=== PATIENT | female | born 1970 | race Caucasian/White ===

== ENCOUNTER → 2016-12-01 | Outpatient (CLI) | payer OTHER ==
--- NOTE | 2016-12-10 15:24 | REPMRS ---
Patient History The patient states she has not had a clinical breast exam in over a year. Family history of endometrial cancer in mother at age 60. Digital Mammo Screening Bilat: December 01, 2016 - Exam #: [id number] Bilateral CC and MLO view(s) were taken. Technologist: Renata Guerrero, Technologist FINDINGS: There are scattered fibroglandular densities. There has been no change in the appearance of the mammogram from the prior studies. There is a mild amount of residual fibroglandular tissue which is fairly symmetric. There is no interval development of dominant mass, architectural distortion, or clustered microcalcification suggestive of malignancy. ASSESSMENT: BI-RADS/ACR category 1 mammogram. Negative. Recommendation Routine screening mammogram in 1 year (for women over age 40). This mammogram was interpreted with the aid of an FDA-approved computer-aided dectection system. Electronically Signed By: Charles Cordoba MD 12/10/16 [id number]
== END ==
LOC: M RAD 15:14
PROVIDERS: ATTEND Internal Medicine
DX: Z12.31 Encounter for screening mammogram for malignant neoplasm of breast (principal)

== ENCOUNTER 2018-08-10 10:08 | Day surgery (SDC) | payer OTHER ==
[~2018-08-10] VITALS: Ht 152.4 cm; Wt 79.3 kg
[~2018-08-10 10:08] MED LIST: BUPR15TA PO; LEXA1TAB PO; LIDOCAINE 1% MDV 20ML VIAL SQ PRN; LR 1,000 ML IV ONE
[2018-08-10] MEDS ORDERED: OMEP10CASR PO (10:47)
[2018-08-10] MEDS ORDERED: LIDOCAINE 2% INJ 100 MG/5 ML SDV (FOR ANES.) As Ordered ONE (11:02)
[2018-08-10] MEDS ORDERED: PROPOFOL 200 MG/20 ML VIAL As Ordered ONE (11:02)
[2018-08-10] MEDS ORDERED: fentaNYL 100 MCG/2 ML INJECTION (J3010) As Ordered ONE (11:02)
[2018-08-10] MEDS ORDERED: MIDAZOLAM INJ 2 MG/2 ML VIAL (J2250) As Ordered ONE (11:02)
[2018-08-10 11:37] LABS: HEMOGLOBIN 11.8 g/dl (12.0-15.5); MEAN CORPUSCULAR HEMOGLOBIN 27.4 pg (27.0-33.0); MEAN CORPUSCULAR HGB CONC 32.8 g/dl (32.0-36.5); MEAN CORPUSCULAR VOLUME 83.5 fl (80.0-96.0); PLATELET COUNT, AUTOMATED 406 10^3/uL (150-450); RED BLOOD COUNT 4.31 10^6/uL (4.00-5.40); WHITE BLOOD COUNT 8.6 10^3/uL (4.0-10.0)
[2018-08-10 12:18] LABS: HCG, SERUM QUALITATIVE NEGATIVE (NEGATIVE)
[2018-08-10] MEDS ORDERED: dexameTHASONE 4 MG/ML 1ML VIAL (J1100) As Ordered ONE (12:44)
[2018-08-10] MEDS ORDERED: KETOROLAC 60 MG/2 ML VIAL (J1885) As Ordered ONE (12:44)
[2018-08-10] MEDS ORDERED: ONDANSETRON 4MG/2ML VIAL (J2405) As Ordered ONE (12:45)
[2018-08-10] MEDS ORDERED: PERCOCET 5MG/325MG TAB PO PRN (14:00)
[2018-08-10] MEDS ORDERED: fentaNYL 100 MCG/2 ML INJECTION (J3010) IV PRN (14:00)
[2018-08-10] MEDS ORDERED: NORCO, ANEXSIA 5/325MG TABLET (HYDROcodone/ACETAMINOPHEN) PO PRN (14:00)
[2018-08-10] MEDS ORDERED: ONDANSETRON 4MG/2ML VIAL (J2405) IV PRN (14:00)
[2018-08-10] MEDS ORDERED: LR 1,000 ML IV SCH (14:00)
[2018-08-10 14:24] VITALS: BP 137/68
--- NOTE | 2018-08-10 14:36 | RO ---
DATE OF PROCEDURE: 08/10/2018 PREOPERATIVE DIAGNOSIS: Abnormal uterine bleeding. POSTOPERATIVE DIAGNOSES: Abnormal uterine bleeding. Severe uterine anteversion. PROCEDURE: Hysteroscopy. Dilatation and curettage. SURGEON: Dr. Hallman HOME SALES SERVICE PROFESSIONAL: None. ANESTHESIA: Laryngeal mask airway (LMA). FLUIDS: 900 mL Lactated Ringer's. URINE OUTPUT: 50 mL via straight cath. ANTIBIOTICS: None indicated ESTIMATED BLOOD LOSS: 2 mL. COMPLICATIONS: None. OPERATIVE FINDINGS: Severely anteverted uterus sounded to 7.5 cm. Hysteroscopy impossible secondary to severe anteversion of the uterus and rigid hysteroscope. DETAILED PROCEDURE DESCRIPTION: The risks, benefits, indications and alternatives to the procedure were reviewed with the patient and informed consent was obtained. The patient was taken to the operating room where LMA anesthesia was obtained without difficulty. The patient was then placed in lithotomy position using Ciro stirrups. An exam under anesthesia was then performed and was significant for a midline severely anteverted uterus with minimal mobility. The patient was then prepped and draped in the usual sterile fashion and the bladder was drained using in and out catheter. A surgical time out was then performed and the planned procedure and the patient's identity were verified with the operative team. A sterile speculum was placed in the patient's vagina and the cervix was visualized. The uterus was extremely anteverted and the cervix was very difficult to visualize as well as access. A single toothed tenaculum was then used to grasp the anterior lip of the cervix. A uterine sound was gently placed into the uterus and sound to 7.5 cm in length. The cervix was then gently serially dilated to a size 12 [place] with a Sabas dilator. The hysteroscope was first primed. The hysteroscope was then advanced through the endocervical canal under direct visualization. Due to the rigid hysteroscope and orientation of the uterus and cervix, it was impossible to distend the uterine cavity completely. Thus examination of the uterine cavity could not be performed directly with the hysteroscope. The hysteroscope was then removed from the uterus. The cervix was then gently further dilated and a sharp curettage was then performed until a gritty texture was felt in all tissue planes. The tissue obtained was sent to pathology for review. The single tooth tenaculum was then removed from the anterior lip of the cervix and the tenaculum site was noted to be hemostatic. All instruments were then removed from the patient's vagina. Hysteroscopic fluid deficit was 50 mL of normal saline. The patient tolerated the procedure well. A vaginal sweep at the conclusion of the case revealed no retained foreign objects in the vagina. At the completion of the case, the sponge, instrument and needle counts were correct times two. The patient was taken to the postanesthesia care unit (PACU) in stable condition. [facility]IL[facility]
== END 2018-08-10 15:15 | disposition home or self-care (01) ==
LOC: M SDC 10:08
PROVIDERS: ATTEND Obstetrics & Gynecology
DX: N92.6 Irregular menstruation, unspecified (principal); N85.4 Malposition of uterus; K21.9 Gastro-esophageal reflux disease without esophagitis; F41.9 Anxiety disorder, unspecified; F32.9 Major depressive disorder, single episode, unspecified; Z79.899 Other long term (current) drug therapy; Z88.0 Allergy status to penicillin
CPT/HCPCS: 36415; 58558; 84703; 85027; 86850; 86900; 86901; 88305; J1100; J1885; J2250; J2405; J3010

== ENCOUNTER 2018-10-05 10:23 | Day surgery (SDC) | payer OTHER ==
[~2018-10-05] VITALS: Ht 152.4 cm; Wt 78.5 kg
[~2018-10-05 10:23] MED LIST changes: -LIDOCAINE 1% MDV 20ML VIAL SQ PRN; +OMEP10CASR PO
[2018-10-05] MEDS ORDERED: ZANT150T40 PO (10:57)
[2018-10-05 11:12] LABS: HEMATOCRIT 38.7 % (36.0-47.0); HEMOGLOBIN 12.3 g/dl (12.0-15.5); MEAN CORPUSCULAR HEMOGLOBIN 26.9 pg (27.0-33.0); MEAN CORPUSCULAR HGB CONC 31.8 g/dl (32.0-36.5); MEAN CORPUSCULAR VOLUME 84.7 fl (80.0-96.0); PLATELET COUNT, AUTOMATED 407 10^3/uL (150-450); RED BLOOD COUNT 4.57 10^6/uL (4.00-5.40); WHITE BLOOD COUNT 8.4 10^3/uL (4.0-10.0)
[2018-10-05 11:35] LABS: HCG, SERUM QUALITATIVE NEGATIVE (NEGATIVE)
[2018-10-05] MEDS ORDERED: SUCCINYLCHOLINE 100 MG/5 ML SYRINGE (J0330) As Ordered ONE (14:07)
[2018-10-05] MEDS ORDERED: fentaNYL 250 MCG/5 ML INJECTION (J3010) As Ordered ONE (14:07)
[2018-10-05] MEDS ORDERED: MIDAZOLAM INJ 2 MG/2 ML VIAL (J2250) As Ordered ONE (14:07)
[2018-10-05] MEDS ORDERED: dexameTHASONE 4 MG/ML 1ML VIAL (J1100) As Ordered ONE (14:07)
[2018-10-05] MEDS ORDERED: LIDOCAINE 2% INJ 100 MG/5 ML SDV (FOR ANES.) As Ordered ONE (14:07)
[2018-10-05] MEDS ORDERED: KETOROLAC 60 MG/2 ML VIAL (J1885) As Ordered ONE (14:07)
[2018-10-05] MEDS ORDERED: PROPOFOL 200 MG/20 ML VIAL As Ordered ONE (14:07)
[2018-10-05] MEDS ORDERED: ONDANSETRON 4MG/2ML VIAL (J2405) As Ordered ONE (14:07)
[2018-10-05] MEDS ORDERED: ONDANSETRON 4MG/2ML VIAL (J2405) IV PRN (15:00)
[2018-10-05] MEDS ORDERED: LR 1,000 ML IV SCH (15:00)
[2018-10-05] MEDS ORDERED: KETOROLAC 30 MG/ML VIAL (J1885) IV ONE (15:00)
[2018-10-05] MEDS ORDERED: fentaNYL 100 MCG/2 ML INJECTION (J3010) IV PRN (15:00)
[2018-10-05] MEDS ORDERED: PERCOCET 5MG/325MG TAB PO PRN ×2 (15:00)
[2018-10-05] MEDS ORDERED: METOCLOPRAMIDE INJ 10MG/2ML VIAL (J2765) IV PRN (15:00)
[2018-10-05 16:20] VITALS: BP 159/79
--- NOTE | 2018-10-07 08:31 | RO ---
DATE OF PROCEDURE: 10/05/2018 PREOPERATIVE DIAGNOSIS: Abnormal uterine bleeding. POSTOPERATIVE DIAGNOSIS: Abnormal uterine bleeding. PROCEDURE: OR assisted endometrial biopsy. SURGEON: Dr. Judd Hallman SPRINKLER FITTER APPRENTICE: None. ANESTHESIA: General. FLUIDS: 1200 mL. URINE OUTPUT: 30 mL. ESTIMATED BLOOD LOSS: 5 mL. COMPLICATIONS: None. ANTIBIOTICS: None indicated. DETAILED PROCEDURE DESCRIPTION: The risks, benefits, indications and alternatives of the procedure were reviewed with the patient and informed consent was obtained. The patient was taken to the operating room where general anesthesia was obtained without difficulty. The patient was then placed in lithotomy position using Ciro stirrups. Exam under anesthesia was then performed and was significant for a severely anteverted uterus approximately 12 weeks in size. The patient was then prepped and draped in the usual sterile fashion. The bladder was drained using an in and out catheter. A sterile speculum was placed into the patient's vagina and the cervix was visualized. The cervix and uterus were extremely anteverted, making access to the cervix very difficult. The cervix was ultimately grasped with a single tooth tenaculum on the anterior lip. Sounding of the uterus was not done with a rigid instrument due to the extreme anteversion of the uterus. The cervix was gently dilated to a size 10 Iranian with a Sabas dilator. Due to the inability to place rigid instruments because of the severe anteversion of the uterus, an endometrial Pipelle was obtained and opened on the field. The endometrial Pipelle, with some difficulty, was inserted through the cervix and advanced to the uterine fundus. The endometrial Pipelle was advanced into the uterus to 12 cm. Tissue sampling was obtained in all planes and an adequate tissue amount was obtained and sent to pathology for review. Multiple passes were performed to ensure good tissue sampling. The single tooth tenaculum was then removed from the anterior lip of the cervix and the cervix was noted to be hemostatic. All instruments were then removed from the patient's vagina. The patient tolerated the procedure well. At the completion of the case, the sponge, instrument and needle counts were correct times two. The patient was taken to the postanesthesia care unit (PACU) in stable condition. [facility]ITALMabel
== END 2018-10-05 16:25 | disposition home or self-care (01) ==
LOC: M SDC 10:23
PROVIDERS: ATTEND Obstetrics & Gynecology
DX: N92.6 Irregular menstruation, unspecified (principal); N85.4 Malposition of uterus; K21.9 Gastro-esophageal reflux disease without esophagitis; Z88.0 Allergy status to penicillin; Z88.2 Allergy status to sulfonamides; Z79.899 Other long term (current) drug therapy; F41.9 Anxiety disorder, unspecified; F32.9 Major depressive disorder, single episode, unspecified
CPT/HCPCS: 36415; 58100; 84703; 85027; 86850; 86900; 86901; 88304; J0330; J1100; J1885; J2250; J2405; J3010

== ENCOUNTER → 2018-11-03 | Outpatient (CLI) | payer OTHER ==
[~2018-11-03] MED LIST changes: -LR 1,000 ML IV ONE; +ZANT150T40 PO
--- NOTE | 2018-11-03 14:30 | REP ---
REASON: Cough. COMPARISON: 11/26/2014 the latest prior. FINDINGS: The superior mediastinal structures are midline. The cardiac silhouette is unremarkable in size, shape, and position. The diaphragmatic surfaces of the lungs are regular, and the costophrenic angles are clear. The pulmonary lipscomb are clear. The imaged osseous structures are intact. IMPRESSION: There is no acute cardiopulmonary disease. Electronically Signed by Dinesh Gomez DO 11/03/2018 05:11 P
== END ==
LOC: M LRY 12:38
PROVIDERS: ATTEND Physician Assistant
DX: R05 Cough (principal)
CPT/HCPCS: 71046; G0463